=== PATIENT | male | born 1970 | race Caucasian/White ===

== ENCOUNTER 2016-08-10 16:03 | Emergency (ER) | payer OTHER ==
[~2016-08-10] VITALS: Ht 172.7 cm; Wt 89.4 kg
[2016-08-10 16:25] VITALS: BP 150/98; PULSE 98; RESP 16; TEMP 97; O2SAT 97
--- NOTE | 2016-08-10 16:30 | NUR ---
Patient to ER bed 8 to gown for evaluation. Side rails up. Report given to ALBERTO MONTANO.
--- NOTE | 2016-08-10 16:32 | NUR ---
Pt came into the ER in stable condition. Pt c/o left upper arm pain s/p lifting 30 lb wood at [employer]. Pt stated that he heard a pop when he was lifting the wood. -sob -chest pain . No acute distress noted at this time, will continue to monitor
--- NOTE | 2016-08-10 16:35 | NUR ---
ER at bedside examining patient.
[2016-08-10 16:52] VITALS: BP 150/98; PULSE 98; RESP 16; TEMP 97; O2SAT 97
--- NOTE | 2016-08-10 16:52 | NUR ---
Patient given written and verbal discharge instructions and verbalizes understanding. ER MD Rose discussed with patient the results and treatment provided. Patient in stable condition. ID arm band removed. Rx of Ibuprofen 600 given. Patient educated on pain management and to follow up with PMD. Pain Scale 3/10. Opportunity for questions provided and answered.
== END 2016-08-10 16:52 | disposition home or self-care (01) ==
LOC: SED 16:03
DX: S46.292A Other injury of muscle, fascia and tendon of other parts of biceps, left arm, initial encounter (principal); X50.0XXA Overexertion from strenuous movement or load, initial encounter; Y93.89 Activity, other specified; Y92.89 Other specified places as the place of occurrence of the external cause; Y99.8 Other external cause status
CPT/HCPCS: 99283